=== PATIENT | female | born 1960 | race Caucasian/White ===

== ENCOUNTER 2016-07-10 16:40 | Emergency (ER) | payer OTHER, MEDICAID ==
[~2016-07-10] VITALS: Ht 175.3 cm; Wt 103.4 kg
[~2016-07-10 16:40] MED LIST: ATOR10TA15 PO; BUPR150T3 PO; DULO1CAP2 PO; FERR1TAB36 PO; GABA600T PO; LEVO75TA3 PO; MELO-1 PO; METH750T PO; MULTTAB67 PO; NALT50TA3 PO; OMEP20TA PO; OXYB10TA PO; TOPI1TAB97 PO
[2016-07-10 16:49] VITALS: BP 117/89; PULSE 98; RESP 16; TEMP 98.4; O2SAT 97
--- NOTE | 2016-07-10 17:11 | PD ---
HPI Chief Complaint: Back/ Neck Pain or Injury Time Seen by Provider: 17:11 Travel History International Travel<30 days: No Contact w/Intl Traveler<30days: No Traveled to known affect area: No History of Present Illness HPI 56-year-old female presents the emergency Department with sudden onset left flank pain after getting up off the couch yesterday from watching movies. Patient has history of chronic back pain and sciatica for which she is on multiple medications. Patient denies nausea, vomiting, fever, chills, she has had a recent cough however. She has no upper respiratory symptoms. She states her cough is nonproductive. Patient has no history of kidney stones in the past. Patient states the pain is worse with certain positions. She states that they 8/10 pain at worse. She states it's not better with medications. She denies urinary symptoms, or changes in her bowels. She is allergic to latex and tramadol. PFSH Past Medical History Arthritis: Yes Cancer: No Cardiovascular Problems: No Diabetes: No Diminished Hearing: No Endocrine: No Gastrointestinal Disorders: Yes (gerd) GERD: Yes Genitourinary: No Hepatitis: No Hiatal Hernia: No Hypertension: No Immune Disorder: No Musculoskeletal: Yes (arthritis) Neurologic: Yes (heriaded disc) Psychiatric: No Reproductive: No Respiratory: No Thyroid Disease: Yes (hypothyroidism) Tetanus Vaccination: Unknown ?: Not Past Surgical History Abdominal Surgery: No AICD: No Cardiac Surgery: No Endocrine Surgery: No Eye Surgery: No Genitourinary Surgery: No Gynecologic Surgery: Yes (c section) Joint Replacement: No Neurologic Surgery: No Oral Surgery: No Pacemaker: No Thoracic Surgery: No Social History Alcohol Use: No Tobacco Use: Yes Substance Use: No Allergies-Medications (Allergen,Severity, Reaction): Coded Allergies: Latex (Verified Allergy, Intermediate, Rash, 07/10/16) Tramadol (Verified Allergy, Intermediate, Rash, 07/10/16) Reported Meds & Prescriptions Reported Meds & Active Scripts Active Reported Bactroban Nasal Oint (Mupirocin Nasal Oint) 2% Oint 1 Applic EACH NARE BID For 5 days. Vancomycin (Vancomycin HCl) 125 Mg Cap 125 Mg PO QID Bactrim DS (Sulfamethoxazole-Trimethoprim) 800-160 Mg Tab 1 Tab PO BID Multiple Vitamin 1 Tab 1 Tab PO DAILY Bupropion HCl ER 24 HR (Bupropion HCl) 150 Mg Tab 150 Mg PO BID Atorvastatin (Atorvastatin Calcium) 10 Mg Tab 10 Mg PO HS Meloxicam 15 Mg Tab 15 Mg PO DAILY Topiramate 25 Mg Tab 25 Mg PO BID Duloxetine DR (Duloxetine HCl) 30 Mg Capdr 30 Mg PO DAILY Naltrexone (Naltrexone HCl) 50 Mg Tab 50 Mg PO DAILY Levothyroxine (Levothyroxine Sodium) 75 Mcg Tab 75 Mcg PO DAILY Oxybutynin ER 24 HR (Oxybutynin Chloride) 10 Mg Tab 10 Mg PO DAILY Omeprazole 20 Mg Tab 20 Mg PO DAILY Gabapentin 600 Mg Tab 600 Mg PO TID Methocarbamol 750 Mg Tab 750 Mg PO BID Review of Systems Except as stated in HPI: all other systems reviewed are Neg General / Constitutional: No: Fever Eyes: No: Visual changes HENT: No: Headaches Cardiovascular: No: Chest Pain or Discomfort Respiratory: No: Shortness of Breath Gastrointestinal: No: Abdominal Pain Genitourinary: Positive: Flank Pain (see history of present illness.), No: Dysuria Musculoskeletal: Positive: Pain (see history present illness.) Skin: No Rash Neurologic: No: Weakness Psychiatric: No: Depression Endocrine: No: Polydipsia Hematologic/Lymphatic: No: Easy Bruising Physical Exam Narrative GENERAL: Patient appears in no acute distress. SKIN: Warm and dry. Normal color. Normal turgor. No rash. HEAD: Atraumatic. Normocephalic. EYES: Pupils equal and round. No scleral icterus. No injection or drainage. ENT: No nasal bleeding or discharge. Mucous membranes pink and moist. NECK: Trachea midline. No JVD. CARDIOVASCULAR: Regular rate and rhythm. RESPIRATORY: No accessory muscle use. Clear to auscultation. Breath sounds equal bilaterally. Patient is tender along the left lower thoracic posterior region with questionable CVA tenderness. GASTROINTESTINAL: Abdomen soft, non-tender, nondistended. Hepatic and splenic margins not palpable. MUSCULOSKELETAL: Extremities without clubbing, cyanosis, or edema. No obvious deformities. NEUROLOGICAL: Awake and alert. No obvious cranial nerve deficits. Motor grossly within normal limits. Five out of 5 muscle strength in the arms and legs. Normal speech. PSYCHIATRIC: Appropriate mood and affect; insight and judgment normal. Data Data Last Documented VS Vital Signs Date Time Temp Pulse Resp B/P Pulse Ox O2 Delivery O2 Flow Rate FiO2 07/10/16 16:49 98.4 98 16 117/89 97 Orders Urinalysis - C+S If Indicated (07/10/16 17:19) Chest, Pa & Lat (07/10/16 17:19) Labs Laboratory Tests Test 07/10/16 17:42 Urine Color FRANKIE Urine Turbidity CLEAR Urine pH 5.5 Urine Specific [place] 1.025 Urine Protein NEG mg/dL Urine Glucose (UA) NEG mg/dL Urine Ketones NEG mg/dL Urine Occult Blood NEG Urine Nitrite NEG Urine Bilirubin NEG Urine Leukocyte Esterase NEG Urine RBC 0-3 /hpf Urine WBC 0-2 /hpf Urine Squamous Epithelial 6-8 /hpf Cells Urine Mucus MOD /lpf Microscopic Urinalysis Comment CULT NOT INDICATED MDM Medical Decision Making Medical Screen Exam Complete: Yes Emergency Medical Condition: Yes Differential Diagnosis Pleurisy. Pneumonia. Kidney stone. Renal colic. UTI. Muscle skeletal pain. Narrative Course Patient is medically stable at time of exam. I'll get a chest x-ray PA and lateral as well as a urinalysis to start. Further testing may be warranted. Both chest x-ray and urinalysis are within normal limits. Discussed the findings with the patient and she is going to continue her current meds and follow with her primary care physician for further evaluation as needed. Diagnosis Primary Impression: Acute left flank pain Referrals: Primary Care Physician Patient Instructions: General Instructions Additional Instructions: Both chest x-ray and urinalysis are within normal limits. Discussed the findings with the patient and she is going to continue her current meds and follow with her primary care physician for further evaluation as needed. Med/Other Pt SpecificInfo: No Change to Meds Disposition: 01 DISCHARGE HOME Condition: Stable Sanford Espino Jul 10, 2016 17:11
[2016-07-10] MEDS ORDERED: BACTOIN EACH NARE (17:12)
[2016-07-10] MEDS ORDERED: BACT800T5 PO (17:12)
[2016-07-10] MEDS ORDERED: VANC125C3 PO (17:12)
--- NOTE | 2016-07-10 17:35 | RADHPO ---
EXAM DATE/TIME: 07/10/2016 17:26 [facility] COMPARISON: No previous studies available for comparison. INDICATIONS : Complains of upper back pain. MEDICAL HISTORY : None. SURGICAL HISTORY : None. ENCOUNTER: Initial ACUITY: 3 days PAIN SCORE: 3/10 LOCATION: Thoracic spine FINDINGS: PA and lateral views of the chest demonstrate the lungs to be symmetrically aerated without evidence of mass, infiltrate or effusion. The cardiomediastinal contours are unremarkable. Osseous structure s are intact. CONCLUSION: Normal examination. Ej Heller MD on July 10, 2016 at 17:33 Board Certified Radiologist. This report was verified electronically.
[2016-07-10 17:50] LABS: BLOOD, URINE NEG (NEG); GLUCOSE,URINE NEG (NEG); KETONE, URINE NEG (NEG); NITRITE,URINE NEG (NEG); PH, URINE 5.5 (5.0-8.5)
[2016-07-10 17:59] LABS: URINE COLOR AMBER (YELLW/STRAW)
[2016-07-10 18:01] LABS: COMMENT (UR) CULT NOT INDICATED; CULTURE IF INDICATED CULT NOT INDICATED; MUCUS URINE MOD /lpf (OCC); RBC, URINE 0-3 /hpf (0-3); WBC, URINE 0-2 /hpf (0-5)
== END 2016-07-10 18:31 | disposition home or self-care (01) ==
LOC: PHEFT 16:40
DX: R10.9 Unspecified abdominal pain (principal); Z72.0 Tobacco use
CPT/HCPCS: 71020; 81001; 99284